=== PATIENT | female | born 1960 | race Caucasian/White ===

== ENCOUNTER 2018-06-18 09:35 | Emergency (ER) | payer BC ==
[2018-06-18 09:54] VITALS: BP 103/61
--- NOTE | 2018-06-18 10:20 | UC ---
Abdominal Pain Female HPI - HPI Summary HPI Summary: Patient presents to urgent care reporting 18 hours of urinary frequency and urine spasm and mild odor. No back pain. No nausea vomiting. No hematuria. Patient with a history of recurrent UTIs and states this feels similar. No vaginal discharge, itching, or odor. No concern for STI. Patient has not taken any analgesia. Patient's never had problems with resistance antibiotics. Patient's allergy denies. Patient without complaints. Patient's medications reviewed this visit - History of Current Complaint Chief Complaint: UCGU Stated Complaint: URINARY COMPLAINT Time Seen by Provider: 06/18/18 10:02 Hx Obtained From: Patient Pain Intensity: 0 Allergies/Adverse Reactions: Allergies Allergy/AdvReac Type Severity Reaction Status Date / Time No Known Allergies Allergy Verified 06/18/18 09:50 Home Medications: Home Medications Levothyroxine TAB* [Synthroid TAB*] 25 mcg PO DAILY 06/18/18 [History Confirmed 06/18/18] PMH/Surg Hx/FS Hx/Imm Hx Previously Healthy: Yes - Surgical History Surgical History: Yes Surgery Procedure, Year, and Place: 3 C SECTIONS. APPENDECTOMY - Family History Known Family History: Positive: Other - mother had frequent UTI's - Social History Occupation: Employed Full-time Lives: With Family Alcohol Use: Occasionally Substance Use Type: None Smoking Status (MU): Never Smoked Tobacco Review of Systems All Other Systems Reviewed And Are Negative: Yes Genitourinary: Positive: Dysuria, Frequency Physical Exam - Summary Physical Exam Summary: Vital Signs Reviewed: Yes A+Ox3, no distress Eyes: Conjunctiva Clear ENT: Hearing grossly normal neck: supple Respiratory: Positive: No respiratory distress, No accessory muscle use CTA throughout no w/r Cardiovascular: skin color reflect adequate perfusion RRR nl s1 s2 abd soft + BS no guarding, no rebound soft no CVA Musculoskeletal Exam: PERDOMO x 4 without difficulty Neurological: Positive: Alert, ambulatory without difficulty Psychological: Positive: Normal Response To Family Skin: Positive: no rash, no ecchymosis Triage Information Reviewed: Yes Vital Signs: Initial Vital Signs Temp 98.6 F 06/18/18 09:50 Pulse 58 06/18/18 09:50 Resp 15 06/18/18 09:50 BP 103/61 06/18/18 09:50 Pulse Ox 99 06/18/18 09:50 Abd Pain Female Course/Dx - Course Course Of Treatment: Patient presents with 18 hours of urinary frequency, urgency and spasm. Patient without any vaginal discharge. Patient's urinalysis consistent with UTI. We'll culture. We'll start on Macrobid. Also prescribe Pyridium. Hydrate. Motrin/Tylenol. Patient comfortable in agreement with plan. - Differential Dx/Diagnosis Provider Diagnoses: UTI Discharge - Sign-Out/Discharge Documenting (check all that apply): Patient Departure All imaging exams completed and their final reports reviewed: No Studies - Discharge Plan Condition: Stable Disposition: HOME Prescriptions: Nitrofurantoin Monohyd/M-Cryst [Macrobid 100 mg Capsule] 100 mg PO BID #14 cap Phenazopyridine TAB* [Pyridium 100 mg TAB*] 100 mg PO TID PRN #9 tab PRN Reason: burning with urination Patient Education Materials: Urinary Tract Infection in Women (ED) Referrals: Harpal Duckworth MD [Primary Care Provider] - Additional Instructions: - stay well hydrated - drink plenty of non-alcoholic, non caffinated beverages - your urine will be further tested - if you require any changes to your treatment, we will contact you - this usually take 2 days - Contact your primary doctor to arrange a follow-up appointment next week. Contact your doctor or return with questions or concerns - Take your antibiotics exactly as prescribed until gone - Take pyridium as prescribed for discomfort. This will make your urine blaze orange - this is normal - Okay to alternate ibuprofen (Advil, Motrin) and Tylenol every 3 hours for pain. Take with food - Call your doctor or return with questions or concerns - Billing Disposition and Condition Condition: STABLE Disposition: Home
== END 2018-06-18 10:19 | disposition home or self-care (01) ==
LOC: UCCORT 09:35
DX: N39.0 Urinary tract infection, site not specified (principal); B96.20 Unspecified Escherichia coli [E. coli] as the cause of diseases classified elsewhere
CPT/HCPCS: 81003; 87077; 87086; 87186; 99212; G0463

== ENCOUNTER 2019-05-18 12:26 | Emergency (ER) | payer BC ==
--- OUTSIDE RECORDS SUMMARY | 2019-05-18 13:56 | XMS REPORT | Continuity of Care Document ---
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 Medicine Problems Active Problems Provider Date Hypothyroidism Onset: 07/29/2012 Vitamin D deficiency Onset: 07/29/2012 Cellulitis Onset: 07/29/2012 Social History Type Date Description Comments Sex Unknown ETOH Use A glass of wine once or twice A month Tobacco Use Start: Unknown End: Patient is a former smoker Quit 2008 Unknown Recreational Drug Use Denies Drug Use Smoking Status Reviewed: 05/30/14 Patient is a former smoker Quit 2008 Allergies, Adverse Reactions, Alerts Active Allergies Reaction Severity Comments Date Bacitracin 07/31/2018 Neomycin 07/31/2018 Polymyxin B 07/31/2018 Medications Active Medications SIG Qnty Indications Ordering Provider Date Levothyroxine Sodium 1 by mouth 30tabs E03.9 Harpal 03/02/2019 112mcg every day MD [facility]cci Tablets History Medications Levothyroxine Sodium take 1 tablet 30tabs E03.9 Harpal Duckworth 2018 - by mouth once 03/02/2019 100mcg Tablets daily Immunizations CPT Code Status Date Vaccine Reaction Lot # [id number] Given 10/29/2018 Tdap - risk & benefits MF9EA/Tdap/Priv Tetanus/Diptheria/Acel discussed ate lular Pertussis 14145 Given 05/30/2014 Influenza Virus 3Yrs & Over 80622 Given 05/27/2013 Influenza Virus 3Yrs & Over 16105 Given 05/04/2012 Influenza Virus 3Yrs & Over 25541 Given 05/01/2011 Influenza Virus 3Yrs & Over 65998 Given 04/11/2010 Tdap - Tetanus/Diptheria/Acel lular Pertussis 19671 Given 04/11/2010 Influenza Virus 3Yrs & Over Vital Signs Date Vital Result Comment 04/01/2019 3:49pm Weight 120.00 lb BP Systolic Sitting 100 mmHg BP Diastolic Sitting 50 mmHg 10/29/2018 3:20pm Weight 113.00 lb BP Systolic Sitting 102 mmHg BP Diastolic Sitting 40 mmHg Results Description No Information Available Procedures Date Code Description Status 08/27/2018 [id number] Mammogram Completed 08/27/2017 [id number] Mammogram Completed 10/08/2013 [id number] Colonoscopy Completed Medical Devices Description No Information Available Encounters Description No Information Available Assessments Date Code Description Provider 04/01/2019 A09 Infectious gastroenteritis and colitis, YUMIKO Galvan unspecified 04/01/2019 K21.9 Gastro-esophageal reflux disease without YUMIKO Galvan esophagitis 10/29/2018 Z23 Encounter for immunization Nurse Schedule Loc 73 Plan of Treatment Future Appointment(s):07/16/2019 9:30 am - YUMIKO Galvan at [facility]11/2018 - RALEIGH Galvan Infectious gastroenteritis and colitis, [id number] Gastro-esophageal reflux disease without esophagitisNew Medication: - Functional Status Description No Information Available Mental Status Description No Information Available Referrals Description No Information Available
--- OUTSIDE RECORDS SUMMARY | 2019-05-18 13:56 | XMS REPORT | Continuity of Care Document ---
:1960 External Reference #:[id number] Author Name Radha Oglesby Description No Information Available Social History Type Date Description Comments Sex Unknown Allergies, Adverse Reactions, Alerts Description No Information Available Medications Description No Information Available Immunizations Description No Information Available Vital Signs Description No Information Available Results Test Date Facility Test Result H/L Range Note Laboratory test [facility] Act Partial 75.2 High 23.4-35.0 1, 2 finding [address] [place] [address] Time [phone] Laboratory test [facility] Act Partial > 150.0 Critical 23.4-35.0 3 finding [address] [place] [address] Time [phone] Laboratory test [facility] Act Partial 41.8 High 23.4-35.0 4 finding [address] [place] [place] [address] Time [phone] Laboratory test [facility] Act Partial 50.8 High 23.4-35.0 5 finding [address] [place] [address] Time [phone] CBC W/Automated [facility] White Blood 6.9 K/uL Normal 3.1-10.7 Diff [address] [place] [address] [phone] Red Blood Count 3.74 M/uL Low 3.90-5.40 Hemoglobin 11.8 gm/dL Normal 11.6-15.8 Hematocrit 36.0 % Normal 36.0-46.1 Mean Cell Volume 96.3 fl Normal 80.9-99.0 Mean Corpuscular HGB 31.6 pg Normal 25.9-32.7 Mean Corpuscular HGB Conc 32.8 g/dL Normal 30.8-34.3 Platelet Count 135 K/uL Low 155-360 Red Cell Distri Width SD 55.9 fl High 36-47 Red Cell Distri Width %CV 15.9 % High 11.7-14.4 Mean Platelet Volume 11.5 fl Normal 8.9-12.4 Neut% 42.6 % Normal 40.4-72.8 Lymph % 14.1 % Low 20.0-42.0 Kane % 7.8 % Normal 4.3-13.2 Eo% 32.9 % High 0.0-6.6 Bas% 1.7 % High 0.0-1.1 Immature Grans 0.9 % Normal 0.0-5.0 NRBC % 0.0 /100WBC < 10/ 100 WBC Neut# 2.96 K/uL Normal 1.8-7.0 Lymph # 0.98 K/uL Low 1.0-4.0 Kane # 0.54 K/uL Normal 0.3-0.9 Eos # 2.28 K/uL High 0.0-0.5 Baso # 0.12 K/uL High 0.0-0.1 Immature Grans Absolute 0.06 K/uL NRBC # 0.00 K/uL Laboratory test 04/08/2019 [facility] Act 87.6 High 23.4-35.[address] [place] [place] [address] Thrombo [phone] Time Comprehensive 04/08/2019 [facility] Glucose 90 mg/dL Normal 74-106 Metabolic Panel [address] [place] [address] [phone] BUN 7 mg/dL Normal 7-18 Creatinine 0.9 mg/dL Normal 0.6-1.3 Glom Filtration Rate, Estimate >60 mL/min >60 If >60 mL/min >60 6 BUN/Creat 7.7 ratio Sodium 141 mmol/L Normal 136-145 Potassium 3.4 mmol/L Low 3.5-5.1 Chloride 109 mmol/L High 98-107 Carbon Dioxide 26 mmol/L Normal 21-32 Anion Gap 6 mEq/L Low 8-16 Calcium 8.4 mg/dL Low 8.5-10.1 Total Protein 6.1 g/dL Low 6.4-8.2 Albumin 3.1 g/dL Low 3.4-5.0 Globulin 3.0 g/dL Normal 1.9-4.3 Alb/Glob 1.0 ratio Bilirubin,Total 0.3 mg/dL Normal 0.2-1.0 Sgot/Ast 11 U/L Low 15-37 7 SGPT/Alt 22 U/L Normal 12-78 Alkaline Phosphatase 58 U/L Normal 45-117 Laboratory 04/08/2019 [facility] Magnesium 1.9 mg/dL Normal 1.8-2.4 test finding [address] [place] [address] [phone] Laboratory 04/08/2019 [facility] Act Partial 94.6 High 23.4-35.0 8 test finding [address] [place] Time seconds [place] [address] [phone] Laboratory 04/07/2019 [facility] Act Partial 59.5 High 23.4-35.0 test finding [address] [place] [address] [phone] Differential-W 04/07/2019 [facility] Total Cells 100 #CELLS BC Confirm [address] [place] [address] [phone] Band% 6 % Normal 0-8 Neutrophils% 49 % Normal 33-73 Lymph% 12 % Low 20-42 Monocyte% 8 % Normal 0-10 Eosinophil% 23 % High 0-5 Basophil% 2 % Normal 0-2 Platelet Estimate SLIGHT DECREASE Anisocytosis 0-1+ Slide Review 04/07/2019 [facility] Slide Review DIFF ORDERED [address] [place] [address] [phone] CBC 04/07/2019 [facility] White Blood 8.1 K/uL Normal 3.1-10 W/Automated [address] Count .7 [place] [address] [phone] Red Blood Count 4.13 M/uL Normal 3.90-5.40 Hemoglobin 13.3 gm/dL Normal 11.6-15.8 Hematocrit 39.7 % Normal 36.0-46.1 Mean Cell Volume 96.1 fl Normal 80.9-99.0 Mean Corpuscular HGB 32.2 pg Normal 25.9-32.7 Mean Corpuscular HGB Conc 33.5 g/dL Normal 30.8-34.3 Platelet Count 138 K/uL Low 155-360 Red Cell Distri Width SD 56.0 fl High 36-47 Red Cell Distri Width %CV 15.9 % High 11.7-14.4 Mean Platelet Volume 11.4 fl Normal 8.9-12.4 Neut% 47.3 % Normal 40.4-72.8 Lymph % 12.9 % Low 20.0-42.0 Kane % 7.2 % Normal 4.3-13.2 Eo% 30.1 % High 0.0-6.6 Bas% 1.5 % High 0.0-1.1 Immature Grans 1.0 % Normal 0.0-5.0 NRBC % 0.0 /100WBC < 10/ 100 WBC Neut# 3.83 K/uL Normal 1.8-7.0 Lymph # 1.04 K/uL Normal 1.0-4.0 Kane # 0.58 K/uL Normal 0.3-0.9 Eos # 2.43 K/uL High 0.0-0.5 Baso # 0.12 K/uL High 0.0-0.1 Immature Grans Absolute 0.08 K/uL NRBC # 0.00 K/uL Laboratory test 04/07/2019 [facility] C-Reactive 14.7 mg/L High <3.0 [address] Protein,[place] [address] [phone] Act Partial Thrombo Time 49.9 seconds High 23.4-35.0 10 Comprehensive Metabolic 04/07/2019 [facility] Glucose 107 mg/dL High 74-[address] [place], [place] [address] [phone] BUN 7 mg/dL Normal 7-18 Creatinine 0.9 mg/dL Normal 0.6-1.3 Glom Filtration Rate, Estimate >60 mL/min >60 If >60 mL/min >60 11 BUN/Creat 7.7 ratio Sodium 139 mmol/L Normal 136-145 Potassium 3.9 mmol/L Normal 3.5-5.1 Chloride 107 mmol/L Normal 98-107 Carbon Dioxide 27 mmol/L Normal 21-32 Anion Gap 5 mEq/L Low 8-16 Calcium 8.2 mg/dL Low 8.5-10.1 Total Protein 6.5 g/dL Normal 6.4-8.2 Albumin 3.2 g/dL Low 3.4-5.0 Globulin 3.3 g/dL Normal 1.9-4.3 Alb/Glob 1.0 ratio Bilirubin,Total 0.4 mg/dL Normal 0.2-1.0 Sgot/Ast 7 U/L Low 15-37 12 SGPT/Alt 17 U/L Normal 12-78 Alkaline Phosphatase 60 U/L Normal 45-117 Laboratory 04/07/2019 [facility] Act Partial 48.3 High 23.4-35.0 13 test finding [address] [place] [place] [address] Time [phone] Laboratory 04/06/2019 [facility] Act Partial 42.9 High 23.4-35.0 14 test finding [address] [place] [address] Time [phone] CBC 04/06/2019 [facility] White Blood 9.5 K/uL Normal 3.1-10.[address] [place] [address] [phone] Red Blood Count 4.21 M/uL Normal 3.90-5.40 Hemoglobin 13.3 gm/dL Normal 11.6-15.8 Hematocrit 39.8 % Normal 36.0-46.1 Mean Cell Volume 94.5 fl Normal 80.9-99.0 Mean Corpuscular HGB 31.6 pg Normal 25.9-32.7 Mean Corpuscular HGB Conc 33.4 g/dL Normal 30.8-34.3 Platelet Count 142 K/uL Low 155-360 Red Cell Distri Width SD 54.4 fl High 36-47 Red Cell Distri Width %CV 15.8 % High 11.7-14.4 Mean Platelet Volume 11.5 fl Normal 8.9-12.4 NRBC % 0.0 /100WBC < 10/ 100 WBC Laboratory test 04/06/2019 [facility] Act Partial 95.3 High 23.4-35.[address] [place] [place] [address] Time [phone] CBC W/Automated 04/06/2019 [facility] White Blood 9.6 K/uL Normal 3.1-10.[address] [place] [address] [phone] Red Blood Count 4.09 M/uL Normal 3.90-5.40 Hemoglobin 13.0 gm/dL Normal 11.6-15.8 Hematocrit 39.1 % Normal 36.0-46.1 Mean Cell Volume 95.6 fl Normal 80.9-99.0 Mean Corpuscular HGB 31.8 pg Normal 25.9-32.7 Mean Corpuscular HGB Conc 33.2 g/dL Normal 30.8-34.3 Platelet Count 129 K/uL Low 155-360 Red Cell Distri Width SD 55.7 fl High 36-47 Red Cell Distri Width %CV 15.8 % High 11.7-14.4 Mean Platelet Volume 11.7 fl Normal 8.9-12.4 Neut% 42.3 % Normal 40.4-72.8 Lymph % 15.0 % Low 20.0-42.0 Kane % 7.0 % Normal 4.3-13.2 Eo% 33.2 % High 0.0-6.6 Bas% 1.5 % High 0.0-1.1 Immature Grans 1.0 % Normal 0.0-5.0 NRBC % 0.0 /100WBC < 10/ 100 WBC Neut# 4.08 K/uL Normal 1.8-7.0 Lymph # 1.45 K/uL Normal 1.0-4.0 Kane # 0.67 K/uL Normal 0.3-0.9 Eos # 3.20 K/uL High 0.0-0.5 Baso # 0.14 K/uL High 0.0-0.1 Immature Grans Absolute 0.10 K/uL NRBC # 0.00 K/uL Laboratory test 04/06/2019 [facility] Magnesium 1.9 mg/dL Normal 1.8-2.4 15 finding [address] [facility] [place] [address] [phone] C-Reactive Protein,Quant 17.3 mg/L High <3.0 16 Comprehensive 04/06/2019 [facility] Glucose 90 mg/dL Normal 74-106 Metabolic Panel [address] [place] [address] [phone] BUN 5 mg/dL Critical low 7-18 Creatinine 0.8 mg/dL Normal 0.6-1.3 Glom Filtration Rate, Estimate >60 mL/min >60 If >60 mL/min >60 17 BUN/Creat 6.2 ratio Sodium 140 mmol/L Normal 136-145 Potassium 3.8 mmol/L Normal 3.5-5.1 Chloride 107 mmol/L Normal 98-107 Carbon Dioxide 26 mmol/L Normal 21-32 Anion Gap 7 mEq/L Low 8-16 Calcium 8.0 mg/dL Low 8.5-10.1 Total Protein 6.3 g/dL Low 6.4-8.2 Albumin 3.2 g/dL Low 3.4-5.0 Globulin 3.1 g/dL Normal 1.9-4.3 Alb/Glob 1.0 ratio Bilirubin,Total 0.4 mg/dL Normal 0.2-1.0 Sgot/Ast 9 U/L Low 15-37 18 SGPT/Alt 16 U/L Normal 12-78 Alkaline Phosphatase 58 U/L Normal 45-117 Protime 04/06/2019 [facility] Protime 16.3 seconds High 12.0-14.4 [address] [place], [place] [address] [phone] Inr 1.3 High 0.9-1.1 19 Laboratory test 04/06/2019 [facility] Vitamin B12 793 pg/mL Normal 193-986 finding [address] [place], [place] [address] [phone] CK 11 U/L Low 26-192 Laboratory test 04/06/2019 [facility] Strongyloides Igg Negative Negative [address] AB [place], [place] [address] [phone] Fungal 04/06/2019 [facility] Aspergillus Negative Neg:<1:1 Antibodies, [address] Fumigatus Quant [place], [place] [address] [phone] Aspergillus Flavus Negative Neg:<1:1 Aspergillus Niger Negative Neg:<1:1 Blastomyces Abs, Qn, Did Negative Neg:<1:1 Histoplasma Abs,Qn,Did Negative Neg:<1:1 Laboratory 04/06/2019 [facility] Tryptase 7.5 ug/L 2.2-13.2 test finding [address] [place], [place] [address] [phone] HIV Screen 4TH 04/06/2019 [facility] HIV Screen Non Non 21 Gen Reflex [address] 4th [place] [address] Generation [phone] wRfx Ebv Acute 04/06/2019 [facility] Ebv AB 77.9 U/mL High 0.0-35.[address] Vca,[place] [address] [phone] Ebv Early Antigen AB, IgG <9.0 U/mL 0.0-8.9 23 Ebv AB Vca,Igg >600.0 U/mL High 0.0-17.9 24 Ebv Nuclear Antigen AB, Igg 22.0 U/mL High 0.0-17.9 25 Ebv Interpretation (SEE NOTE) 26 Laboratory 04/06/2019 [facility] Act Partial 48.9 High 23.4-35.0 test finding [address] Thrombo Time seconds [place], [place] [address] [phone] Laboratory 04/06/2019 [facility] Urine 2 % High 0-1 test finding [address] [place] [address] [phone] Drugs Of 04/06/2019 [facility] Amphetamines Negative Abuse-Urine [address] (Urine) Screen 7 [place], [place] [id number] [phone] Barbiturates (Urine) Negative Benzodiazepines (Urine) Negative Cannabinoids (Urine) Negative Cocaine Metabolite (Urine) Negative Methadone (Urine) Negative Opiates (Urine) POSITIVE Abnormal Urine Cutoffs * 27 Type And Screen 04/05/2019 [facility] Patient Blood Type O POS Normal [address] [place] [address] [phone] Antibody Screen Negative Normal Negative Laboratory test 04/05/2019 [facility] Magnesium 2.2 mg/dL Normal 1.8-2.[address] [place], [place] [address] [phone] Lipase 43 U/L Low 56-289 TSH Reflex FT4 and/or FT3 4.79 uIU/mL High 0.30-4.20 HCG,Serum (Qualitative) NEGATIVE (Negative) 28 C-Reactive Protein,Quant 12.0 mg/L High <3.0 Comprehensive 04/05/2019 [facility] Glucose 105 mg/dL Normal 74-106 Metabolic Panel [address] [place] [address] [phone] BUN 6 mg/dL Low 7-18 Creatinine 1.1 mg/dL Normal 0.6-1.3 Glom Filtration Rate, Estimate 55 mL/min >60 If >60 mL/min >60 29 BUN/Creat 5.4 ratio Sodium 136 mmol/L Normal 136-145 Potassium 4.3 mmol/L Normal 3.5-5.1 Chloride 104 mmol/L Normal 98-107 Carbon Dioxide 26 mmol/L Normal 21-32 Anion Gap 6 mEq/L Low 8-16 Calcium 9.2 mg/dL Normal 8.5-10.1 Total Protein 8.3 g/dL High 6.4-8.2 Albumin 3.9 g/dL Normal 3.4-5.0 Globulin 4.4 g/dL High 1.9-4.3 Alb/Glob 0.9 ratio Bilirubin,Total 0.6 mg/dL Normal 0.2-1.0 Sgot/Ast 7 U/L Low 15-37 30 SGPT/Alt 17 U/L Normal 12-78 Alkaline Phosphatase 82 U/L Normal 45-117 Aot Request 04/05/2019 [facility] Aot Request Test(s) added 31 [address] [place] [address] [phone] Tests to be added: CRP MAGNESIUM CCP Igg/Iga 04/05/2019 [facility] CCP Igg/Iga 6 units 0-19 32 Antibodies [address] [facility] [place] [address] [phone] Babesia Microti 04/05/2019 [facility] Babesia <1:10 Neg:<1:10 33 Igg/M Abs,Ifa [address] [facility] microti,[place] [address] [phone] Babesia microti,IgM <1:10 Neg:<1:10 Hepatitis 04/05/2019 [facility] Hepatitis A Negative Negative Evaluation [address] [facility] [place] [address] [phone] HBsAg Screen [Ref Lab] Negative Negative Hepatitis B Core IgM Negative Negative HCV Signal/Cutoff ratio < 0.1 s/corat 0.0-0.9 34 Laboratory test 04/05/2019 [facility] Ferritin 55 ng/mL Normal 8-252 finding 134 [facility] [place] [address] [phone] Kane Screen (Heterophile) NEGATIVE Negative 35 Rheumatoid Factor Screen < 10.0 IU/mL Normal 0.0-15.0 Erythropoietin (Epo), Serum 5.9 mIU/mL 2.6-18.5 36 Blood Culture 04/05/2019 [facility] Blood Culture NO GROWTH: FINAL [address] Aerobic <SEE NOTE> [place] [address] [phone] Blood Culture Anaerobic NO GROWTH: FINAL <SEE NOTE> 38 Laboratory 04/05/2019 [facility] Lyme Total < 0.91 ISR 0.00-0.90 39 test finding [address] AB/[place] [address] WB [phone] Bartonella 04/05/2019 [facility] Bartonella Negative Neg:<1:320 Antibody Panel [address] [place] [address] [phone] Bartonella Henselae IgM Negative titer Neg:<1:100 Bartonella Feng IgG Negative titer Neg:<1:320 Bartonella Feng IgM Negative titer Neg:<1:100 40 Blood Culture 04/05/2019 [facility] Blood Culture NO GROWTH: FINAL [address] Aerobic <SEE NOTE> [place] [address] [phone] Blood Culture Anaerobic NO GROWTH: FINAL <SEE NOTE> 42 CMV By 04/05/2019 [facility] Ctyomegalovirus, Negative Negative 43 PCR, Dna [address] Quant. PCR IU/[place] [address] [phone] log [address] (SEE NOTE) 44 Ebv PCR 04/05/2019 [facility] Ebv Dna Negative Negative [address] Quantitative,PCR [place], [place] [address] [phone] Log10 Ebv Dna Qn (SEE NOTE) 46 Hemoglobin/Hematocrit 04/05/2019 [facility] Hemoglobin 14.0 Normal 11.6-15.[address] gm/dL [place] [address] [phone] Hematocrit 41.8 % 36.0-46.1 Blood Culture 04/05/2019 [facility] Blood Culture NO GROWTH: FINAL [address] Aerobic <SEE NOTE> [place] [address] [phone] Blood Culture Anaerobic NO GROWTH: FINAL <SEE NOTE> 48 1 LLQ PAIN 2 Is patient on heparin protocol? Y 3 CALLED PTT TO MURALI DavideSiddhartha AT [phone] 04/09/19 by LAB.ELR Is patient on heparin protocol? Y 4 Is patient on heparin protocol? Y Is patient on anticoagulants? Heparin 5 Is patient on heparin protocol? Y 6 Note: Persistent reduction for 3 months or more in an eGFR <60 mL/min/1.73 m2 defines CKD. Patients with eGFR values >/=60 mL/min/1.73 m2 may also have CKD if evidence of persistent proteinuria is present. The original MDRD equation for estimated GFR is not valid for patients less than 18 years of age. Additional information may be found at www.kdoqi.org. 7 Values below the stated reference ranges of AST and ALT can be seen in normal populations. Clinical correlation is suggested. 8 Is patient on heparin protocol? Y Is patient on anticoagulants? Heparin 9 OK To Combine Draws Per RN 10 Is patient on heparin protocol? Y Is patient on anticoagulants? Heparin OK To Combine Draws Per RN 11 Note: Persistent reduction for 3 months or more in an eGFR <60 mL/min/1.73 m2 defines CKD. Patients with eGFR values >/=60 mL/min/1.73 m2 may also have CKD if evidence of persistent proteinuria is present. The original MDRD equation for estimated GFR is not valid for patients less than 18 years of age. Additional information may be found at www.kdoqi.org. 12 Values below the stated reference ranges of AST and ALT can be seen in normal populations. Clinical correlation is suggested. 13 Is patient on heparin protocol? Y Is patient on anticoagulants? Heparin 14 Is patient on heparin protocol? Y Is patient on anticoagulants? Heparin [address] ASHLEY JONES [address] ASHLEY JONES 17 Note: Persistent reduction for 3 months or more in an eGFR <60 mL/min/1.73 m2 defines CKD. Patients with eGFR values >/=60 mL/min/1.73 m2 may also have CKD if evidence of persistent proteinuria is present. The original MDRD equation for estimated GFR is not valid for patients less than 18 years of age. Additional information may be found at www.kdoqi.org. 18 Values below the stated reference ranges of AST and ALT can be seen in normal populations. Clinical correlation is suggested. 19 THERAPEUTIC INR RANGE: 2.0 - 3.0 DVT, Pulmonary embolus, prophylaxis against venous thrombosis or systemic embolization in high risk patients. 2.5 - 3.5 Mechanical heart valves 20 Performed at: [address] [id number] Network Project Manager: Keturah Valencia MD, Phone: [phone] 21 Performed at: [address] [id number] Network Project Manager: Mita Wang MD, Phone: [phone] 22 Negative <36.0 Equivocal 36.0 - 43.9 Positive >43.9 23 Negative < 9.0 Equivocal 9.0 - 10.9 Positive >10.9 24 Negative <18.0 Equivocal 18.0 - 21.9 Positive >21.9 25 Negative <18.0 Equivocal 18.0 - 21.9 Positive >21.9 26 EBV Interpretation Chart Interpretation EBV-IgM EA(D)-IgG VCA-IgG EBNA-IgG EBV Seronegative - - - - Early Phase + - - - Acute Primary + +or- + - Infection Convalescence/Past - +or- + + Infection Reactivated +or- +or- + + Infection + Antibody Present - Antibody Absent Performed at: [address] [id number] Network Project Manager: Mita Wang MD, Phone: [phone] 27 URINE SPECIMENS ARE SCREENED AT THE LISTED CUTOFFS DRUG CLASS INITIAL TEST LEVEL Amphetamines 1000 ng/mL Barbiturates 200 ng/mL Benzodiazepines 200 ng/mL Cannabinoids 50 ng/mL Cocaine Metabolite 300 ng/mL Methadone 300 ng/mL Opiates 300 ng/mL Any PRESUMPTIVE POSITIVE findings are UNCONFIRMED. Confirmatory testing is suggested if findings are unexpected. Please contact laboratory if confirmatory testing is desired. SPECIMENS ARE HELD FOR 72 HOURS. 28 Method: [employer] QuickVue One-Step Immunoassay 29 Note: Persistent reduction for 3 months or more in an eGFR <60 mL/min/1.73 m2 defines CKD. Patients with eGFR values >/=60 mL/min/1.73 m2 may also have CKD if evidence of persistent proteinuria is present. The original MDRD equation for estimated GFR is not valid for patients less than 18 years of age. Additional information may be found at www.kdoqi.org. 30 Values below the stated reference ranges of AST and ALT can be seen in normal populations. Clinical correlation is suggested. 31 Tests: CRP MAGNESIUM Instructions: 32 Negative <20 Weak positive 20 - 39 Moderate positive 40 - 59 Strong positive >59 Performed at: [address] [id number] Network Project Manager: Keturah Valencia MD, Phone: [phone] 33 This test was developed and its performance characteristics determined by [employer]. It has not been cleared or approved by the U.S. Food and Drug Administration. The FDA has determined that such clearance or approval is not necessary. This test is used for clinical purposes. It should not be regarded as investigational or research. Performed at: [address] [id number] Network Project Manager: Keturah Valencia MD, Phone: [phone] 34 INFCE Result Units: s/co ratio Negative: < 0.8 Indeterminate: 0.8 - 0.9 Positive: > 0.9 The CDC recommends that a positive HCV antibody result be followed up with a HCV Nucleic Acid Amplification test (144142). Performed at: [address] [id number] Network Project Manager: Mita Wang MD, Phone: [phone] 35 METHOD: Kane II Rapid Immunochromatographic assay [facility] 36 [employer] DxI 800 Immunoassay System Values obtained with different assay methods or kits cannot be used interchangeably. Results cannot be interpreted as absolute evidence of the presence or absence of malignant disease. Performed at: [address] [id number] Network Project Manager: Mita Wang MD, Phone: [phone] 37 NO GROWTH: FINAL REPORT 38 NO GROWTH: FINAL REPORT 39 Negative <0.91 Equivocal 0.91 - 1.09 Positive >1.09 Performed at: [address] [id number] Network Project Manager: Keturah Valencia MD, Phone: [phone] Performed at: [address] [id number] Network Project Manager: Mita Wang MD, Phone: [phone] 40 Note: Bartonella henselae is now regarded as the etiologic agent of Cat Scratch Disease, bacillary angiomatosis, endocarditis and fever with bacteremia. Bartonella feng also causes bacillary angiomatosis particularly among immunocompromised patients, and trench fever. This test was developed and its performance characteristics determined by [facility]. It has not been cleared or approved by the Food and Drug Administration. The FDA has determined that such clearance or approval is not necessary. 41 NO GROWTH: FINAL REPORT 42 NO GROWTH: FINAL REPORT 43 No CMV DNA detected. The quantitative range of this assay is 200 to 1 million IU/mL. This test was developed and its performance characteristics determined by [facility]. It has not been cleared or approved by the Food and Drug Administration. The FDA has determined that such clearance or approval is not necessary. 44 Unable to calculate result since non-numeric result obtained for component test. Performed at: [address] [id number] Network Project Manager: Keturah Valencia MD, Phone: [phone] 45 INFCE Result Units: copies/mL No EBV DNA detected. The quantitative range of this assay is 100 to 1 million copies/mL. This test was developed and its performance characteristics determined by [facility]. It has not been cleared or approved by the Food and Drug Administration. 46 Unable to calculate result since non-numeric result obtained for component test. 47 NO GROWTH: FINAL REPORT 48 NO GROWTH: FINAL REPORT Procedures Description No Information Available Medical Devices Description No Information Available Encounters Description No Information Available Assessments Date Code Description Provider 04/09/2019 R10.32 Left lower quadrant pain Rachele Arrington M.D. 04/09/2019 R16.2 Hepatomegaly with splenomegaly, not Rachele Arrington M.D. elsewhere classified 04/09/2019 R19.7 Diarrhea, unspecified Rachele Arrington M.D. 04/09/2019 R23.3 Spontaneous ecchymoses Rachele Arrington M.D. 04/08/2019 R16.2 Hepatomegaly with splenomegaly, not Blanca Moise M.D. elsewhere classified 04/08/2019 R10.32 Left lower quadrant pain Rachele Arrington M.D. 04/08/2019 R19.7 Diarrhea, unspecified Blanca Moise M.D. 04/08/2019 R16.2 Hepatomegaly with splenomegaly, not Rachele Arrington M.D. elsewhere classified 04/08/2019 R10.32 Left lower quadrant pain Blanca Moise M.D. 04/08/2019 R19.7 Diarrhea, unspecified Rachele Arrington M.D. 04/08/2019 D75.1 Secondary polycythemia Blanca Moise M.D. 04/08/2019 R23.3 Spontaneous ecchymoses Rachele Arrington M.D. 04/07/2019 R93.5 Abnormal findings on diagnostic imaging of Ortiz Collins MD,FACS other abdominal regions, including retroperitoneum 04/07/2019 R16.2 Hepatomegaly with splenomegaly, not Blanca Moise M.D. elsewhere classified 04/07/2019 R19.7 Diarrhea, unspecified Blanca Moise M.D. 04/07/2019 R10.32 Left lower quadrant pain Rachele Arrington M.D. 04/07/2019 R10.32 Left lower quadrant pain Blanca Moise M.D. 04/07/2019 R16.2 Hepatomegaly with splenomegaly, not Ortiz Collins MD,FACS elsewhere classified 04/07/2019 D75.1 Secondary polycythemia Blanca Moise M.D. 04/07/2019 R16.2 Hepatomegaly with splenomegaly, not Rachele Arrington M.D. elsewhere classified 04/07/2019 R19.7 Diarrhea, unspecified Ortiz Collins MD,FACS 04/07/2019 R19.7 Diarrhea, unspecified Rachele Arrington M.D. 04/07/2019 R10.9 Unspecified abdominal pain Ortiz Collins MD,FACS 04/07/2019 R23.3 Spontaneous ecchymoses Rachele Arrington M.D. 04/06/2019 R10.32 Left lower quadrant pain Rachele Arrington M.D. 04/06/2019 R93.5 Abnormal findings on diagnostic imaging of Ortiz Collins MD,FACS other abdominal regions, including retroperitoneum 04/06/2019 R16.2 Hepatomegaly with splenomegaly, not Blanca Moise M.D. elsewhere classified 04/06/2019 R19.7 Diarrhea, unspecified Blanca Moise M.D. 04/06/2019 R16.2 Hepatomegaly with splenomegaly, not Ortiz Collins MD,FACS elsewhere classified 04/06/2019 R16.2 Hepatomegaly with splenomegaly, not Rachele Arrington M.D. elsewhere classified 04/06/2019 R10.32 Left lower quadrant pain Blanca Moise M.D. 04/06/2019 R19.7 Diarrhea, unspecified Ortiz Collins MD,FACS 04/06/2019 R19.7 Diarrhea, unspecified Rachele Arrington M.D. 04/06/2019 D75.1 Secondary polycythemia Blanca Moise M.D. 04/06/2019 R10.9 Unspecified abdominal pain Ortiz Collins MD,FACS 04/06/2019 R23.3 Spontaneous ecchymoses Rachele Arrington M.D. 04/05/2019 R19.7 Diarrhea, unspecified Wilmer Cardenas MD 04/05/2019 R93.5 Abnormal findings on diagnostic imaging of Ortiz Collins MD,MERCY other abdominal regions, including retroperitoneum 04/05/2019 R10.32 Left lower quadrant pain Rachele Arrington M.D. 04/05/2019 R10.32 Left lower quadrant pain Wilmer Cardenas MD 04/05/2019 R16.2 Hepatomegaly with splenomegaly, not Ortiz Collins MD,FACS elsewhere classified 04/05/2019 R16.2 Hepatomegaly with splenomegaly, not Rachele Arrington M.D. 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 Plan of Treatment No Information Available Functional Status Description No Information Available Mental Status Description No Information Available Referrals Description No Information Available
[2019-05-18 14:01] VITALS: BP 90/47
--- NOTE | 2019-05-18 14:07 | UC ---
Complaint Female HPI - HPI Summary HPI Summary: Patient is a 58yo female presenting with urinary burning and frequency since this morning. Patient states she "just knows she has a UTI" and has had them in the past. Notes mild pelvic pressure. Notes blood in urine when she arrived here. Denies abdominal pain. Denies n/v/d. Denies fever and chills. Denies flank pain. Patient notes currently taking amoxicillin for tooth infection and states two days left of prescription. - History Of Current Complaint Chief Complaint: UCGU Stated Complaint: URINARY Hx Obtained From: Patient Onset/Duration: Gradual Onset Pain Intensity: 0 - Allergies/Home Medications Allergies/Adverse Reactions: Allergies Allergy/AdvReac Type Severity Reaction Status Date / Time No Known Allergies Allergy Verified 05/18/19 14:01 Home Medications: Home Medications Amoxicillin 500 mg PO TID 05/18/19 [History Confirmed 05/18/19] PMH/Surg Hx/FS Hx/Imm Hx Previously Healthy: Yes - Surgical History Surgical History: Yes Surgery Procedure, Year, and Place: 3 C SECTIONS. APPENDECTOMY - Family History Known Family History: Positive: Other - mother had frequent UTI's - Social History Alcohol Use: Occasionally Substance Use Type: None Smoking Status (MU): Never Smoked Tobacco Review of Systems All Other Systems Reviewed And Are Negative: Yes Constitutional: Positive: Negative. Negative: Fever, Chills Respiratory: Positive: Negative. Negative: Shortness Of Breath, Cough Cardiovascular: Positive: Negative. Negative: Chest Pain Gastrointestinal: Positive: Negative. Negative: Abdominal Pain, Vomiting, Diarrhea, Nausea Genitourinary: Positive: Dysuria, Hematuria, Frequency, Vaginal/Penile Burning. Negative: Urgency, Vaginal/Penile Itching, Vaginal/Penile Discharge, Vaginal/ Penile Pain, Vaginal/Penile Tenderness, Abnormal Bleeding Musculoskeletal: Positive: Negative Neurological: Positive: Negative Physical Exam Triage Information Reviewed: Yes Appearance: Well-Appearing, No Pain Distress, Well-Nourished Vital Signs: Initial Vital Signs Temp 97.6 F 05/18/19 13:58 Pulse 73 05/18/19 13:58 Resp 16 05/18/19 13:58 BP 90/47 05/18/19 13:58 Pulse Ox 98 05/18/19 13:58 Lab Results 05/18/19 Range/Units 14:07 POC Urine Color [place] POC Urine Clarity Cloudy POC Urine pH 7.5 (5-9) POC Ur Specif [place] 1.020 (1.010-1.030) POC Urine Protein 2+ A (Negative) POC Ur Glucose (UA) Negative (Negative) POC Urine Ketones Negative (Negative) POC Urine Blood 3+ A (Negative) POC Urine Nitrite Negative (Negative) POC Urine Bilirubin Negative (Negative) POC Urine Urobilinogen 0.2 (Negative) POC U Leukocyte Esteras 3+ A (Negative) Vital Signs Reviewed: Yes Eyes: Positive: Conjunctiva Clear ENT: Positive: Hearing grossly normal Neck: Positive: Supple Respiratory Exam: Normal Respiratory: Positive: Lungs clear, No respiratory distress Cardiovascular Exam: Normal Cardiovascular: Positive: RRR. Negative: Tachycardia Abdominal Exam: Normal Abdomen Description: Positive: Nontender. Negative: CVA Tenderness (R), CVA Tenderness (L) Neurological: Positive: Alert Psychological: Positive: Age Appropriate Behavior Complaint Female Dx - Course Course Of Treatment: Pt VS normal and no s/s of pyelo. Educated patient on UTI s/s vs pyelonephritis s/s. I treated with Keflex for UTI. Informed her she may use Azo for symptomatic relief. Also told her to finish her course of amoxicillin for her dental infection and to take probiotics or eat sw[place] yogurt while taking keflex. Instructed patient to return if symptoms do not resolve within 2 days or go to ED if they worsen. Patient voiced understanding and agreed to the treatment plan. - Differential Dx/Diagnosis Provider Diagnosis: UTI (urinary tract infection), uncomplicated Discharge ED - Sign-Out/Discharge Documenting (check all that apply): Patient Departure All imaging exams completed and their final reports reviewed: No Studies - Discharge Plan Condition: Stable Disposition: HOME Prescriptions: Cephalexin CAP* [Keflex CAP*] 500 mg PO BID #13 cap Patient Education Materials: Urinary Tract Infection in Women (ED) Referrals: Harpal Duckworth MD [Primary Care Provider] - If Needed Additional Instructions: Take Keflex as prescribed for treatment of your UTI. You received your first dose today at 2:30pm You may also take AZO otc for symptomatic relief. This may turn your urine orange. This is normal. Return or follow up with your PCP if your symptoms do not resolve with 2 days. To the emergency room if he experienced fever, nausea, vomiting, chills, or back pain. - Billing Disposition and Condition Condition: STABLE Disposition: Home
[2019-05-18] MEDS ORDERED: Cephalexin CAP* 500 MG PO ONE (14:26)
== END 2019-05-18 14:39 | disposition home or self-care (01) ==
LOC: UCCORT 12:26
DX: N39.0 Urinary tract infection, site not specified (principal); R31.9 Hematuria, unspecified; K04.7 Periapical abscess without sinus
CPT/HCPCS: 81003; 87077; 87086; 87186; 99212; A9270-GY; G0463

== ENCOUNTER 2019-07-10 18:28 | Emergency (ER) | payer BC ==
--- NOTE | 2019-07-10 18:33 | UC ---
Complaint Female HPI - HPI Summary HPI Summary: 59 yo female presents with UTI symptoms. She tells me that today she developed bladder pressure and urinary frequency. She had a UTI about 2 months that resolved with keflex per pt. She has had UTIs in the past, but never back to back like this. She denies fever, chills, flank pain, n/v, hematuria, vaginal bleeding or discharge - History Of Current Complaint Stated Complaint: URINARY COMPLAINT Time Seen by Provider: 07/10/19 18:33 Hx Obtained From: Patient Onset/Duration: Sudden Onset Timing: Constant Severity Initially: Mild Severity Currently: Moderate Pain Intensity: 5 Pain Scale Used: 0-10 Numeric - Allergies/Home Medications Allergies/Adverse Reactions: Allergies Allergy/AdvReac Type Severity Reaction Status Date / Time No Known Allergies Allergy Verified 07/10/19 18:46 PMH/Surg Hx/FS Hx/Imm Hx - Additional Past Medical History Additional PMH: Myelofibrosis Endocrine History: Hypothyroidism - Surgical History Surgical History: Yes Surgery Procedure, Year, and Place: 3 C SECTIONS. APPENDECTOMY - Family History Known Family History: Positive: Other - mother had frequent UTI's - Social History Occupation: Employed Full-time Lives: With Family Alcohol Use: Occasionally Substance Use Type: None Smoking Status (MU): Never Smoked Tobacco Review of Systems All Other Systems Reviewed And Are Negative: No Constitutional: Positive: Negative Skin: Positive: Negative Respiratory: Positive: Negative Cardiovascular: Positive: Negative Genitourinary: Positive: Dysuria Neurological: Positive: Negative Psychological: Positive: Negative Physical Exam - Summary Physical Exam Summary: GENERAL: NAD. WDWN. No pain distress. SKIN: No rashes, sores, lesions, or open wounds. NECK: Supple. Nontender. No lymphadenopathy. CHEST: CTAB. No r/r/w. No accessory muscle use. Breathing comfortably and in no distress. CV: RRR. Pulses intact. Cap refill <2seconds ABDOMEN: Soft. NTTP. No distention or guarding. No organomegaly. No CVA tenderness. Bowel sounds present NEURO: Alert. PSYCH: Age appropriate behavior. Triage Information Reviewed: Yes Vital Signs: Vital Signs (72 hours) 07/10/19 18:40 Temperature 98.7 F Pulse Rate 59 Respiratory 16 Rate Blood Pressure 90/59 (mmHg) O2 Sat by Pulse 98 Oximetry Laboratory Tests 07/10/19 18:54 POC Urine Color Other POC Urine Clarity Slightly cloudy POC Urine pH 7.5 POC Ur Specif [place] 1.020 POC Urine Protein 2+ A POC Ur Glucose (UA) Negative POC Urine Ketones Trace POC Urine Blood 3+ A POC Urine Nitrite Negative POC Urine Bilirubin 1+ A POC Urine Urobilinogen 1.0 POC U Leukocyte Esteras 3+ A Vital Signs Reviewed: Yes Complaint Female Dx - Course Course Of Treatment: BP low today. Pt states BP usually runs this. Looking at past records - BP today is similar to previous visits. UA positive - will treat with macrobid and send urine for culture. - Differential Dx/Diagnosis Provider Diagnosis: UTI (urinary tract infection) Discharge ED - Sign-Out/Discharge Documenting (check all that apply): Patient Departure All imaging exams completed and their final reports reviewed: No Studies - Discharge Plan Condition: Stable Disposition: HOME Prescriptions: Nitrofurantoin Monohyd/M-Cryst [Macrobid 100 mg Capsule] 100 mg PO BID #10 cap Patient Education Materials: Urinary Tract Infection in Women (ED) Referrals: Harpal Duckworth MD [Primary Care Provider] - Additional Instructions: If you develop a fever, shortness of breath, chest pain, new or worsening symptoms - please call your PCP or go to the ED immediately. - Billing Disposition and Condition Condition: STABLE Disposition: Home
[2019-07-10 18:46] VITALS: BP 90/59
[2019-07-10] MEDS ORDERED: Nitrofurantoin Macrocrystals* 50 MG CAP PO ONE (19:04)
== END 2019-07-10 19:23 | disposition home or self-care (01) ==
LOC: UCCORT 18:28
DX: N39.0 Urinary tract infection, site not specified (principal)
CPT/HCPCS: 81003; 87077; 87086; 87186; 99212; A9270-GY; G0463

== ENCOUNTER 2019-09-20 19:34 | Emergency (ER) | payer BC ==
[2019-09-20 20:56] VITALS: BP 97/57
--- NOTE | 2019-09-20 20:57 | UC ---
Respiratory Complaint HPI - HPI Summary HPI Summary: Pt presents with 4 days fever, sore throat,c ough states fatigues. no myalgia. pt states history of bronchitis and concerned same. Pt has been using Albuterol MDi with short term improvement - no spacer. no rash. no abd pain. no n/v/d No kenyon, vision changes no sick contact medications as entered in EMR by cardiovascular specialist reviewed this visit - History of Current Complaint Chief Complaint: UCGeneralIllness Stated Complaint: SORE THROAT/FEVER/COUGH Time Seen by Provider: 09/20/19 20:56 Hx Obtained From: Patient Hx Last Menstrual Period: N/A Onset/Duration: Gradual Onset Pain Intensity: 8 - Allergies/Home Medications Allergies/Adverse Reactions: Allergies Allergy/AdvReac Type Severity Reaction Status Date / Time No Known Allergies Allergy Verified 09/20/19 20:56 Home Medications: Home Medications Levothyroxine TAB* [Synthroid TAB*] 50 mcg PO DAILY 06/18/18 [History Confirmed 09/20/19] PMH/Surg Hx/FS Hx/Imm Hx Previously Healthy: Yes - Surgical History Surgical History: Yes Surgery Procedure, Year, and Place: 3 C SECTIONS. APPENDECTOMY - Family History Known Family History: Positive: Other - mother had frequent UTI's - Social History Occupation: Employed Full-time Lives: With Family Alcohol Use: Occasionally Substance Use Type: None Smoking Status (MU): Never Smoked Tobacco Review of Systems All Other Systems Reviewed And Are Negative: Yes Constitutional: Positive: Fever, Fatigue ENT: Positive: Sore Throat, Sinus Congestion Respiratory: Positive: Cough Cardiovascular: Positive: Negative Gastrointestinal: Positive: Negative Physical Exam - Summary Physical Exam Summary: Vital Signs Reviewed: Yes A+Ox3, no distress, tired appearing, coarse cough Eyes: Conjunctiva Clear, SHIRA. 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 Skin: Positive: no rash, no ecchymosis Triage Information Reviewed: Yes Vital Signs: Initial Vital Signs Temp 98.3 F 09/20/19 20:50 Pulse 61 09/20/19 20:50 Resp 16 09/20/19 20:50 BP 97/57 09/20/19 20:50 Pulse Ox 99 09/20/19 20:50 Re-Evaluation - Re-Evaluation First Eval Change: Improved - improved following neb wheezeing improved -feels better Rx prednisone aerochamber abx return precautions secretion precaution humidified air pt comfortable and in agreement with plan Respiratory Course/Dx - Course Course Of Treatment: Pt presents wtih cough, congestant, fever, cough progressive x 4 days pt using albuterol with improvement ital reviewed exam c/w rhinosinusitis lung with wheeze, cough pt declined influenza will give duoneb reassess - Differential Dx/Diagnosis Provider Diagnosis: Rhinosinusitis, Acute bronchitis Discharge ED - Sign-Out/Discharge Documenting (check all that apply): Patient Departure All imaging exams completed and their final reports reviewed: No Studies - Discharge Plan Condition: Stable Disposition: HOME Patient Education Materials: Upper Respiratory Infection (ED) Referrals: Harpal Duckworth MD [Primary Care Provider] - Additional Instructions: - Stay well hydrated. Drink plenty of non-alcoholic, non-caffinated beverages. - Alternate ibuprofen (Advil, Motrin) 600mg and Tylenol every 3 hours for pain or fever. Take with food. Do NOT take for more than 4-5 days. - These infections are spread by secretions - do NOT share eating or drinking utensils - clean items you share with other people such as cell phones, computer mouse, TV remote, computer tablets,etc. Once you start to feel better, change your toothbrush and your pillowcase. - humidify the air in the room where you sleep - boil water, run a hot steam shower, vaporizer, cups of water by heat register - okay to take over the counter decongestant and cough medication - get plenty of restful sleep -use nasal spray as prescribed - contact your doctor or return with questions or concerns - Billing Disposition and Condition Condition: STABLE Disposition: Home
[2019-09-20 21:23] LABS: Influenza A Molecular Negative (Negative); Influenza B Molecular Negative (Negative)
== END 2019-09-20 21:33 | disposition home or self-care (01) ==
LOC: UCCORT 19:34
DX: J20.9 Acute bronchitis, unspecified (principal); J32.9 Chronic sinusitis, unspecified; J02.9 Acute pharyngitis, unspecified
CPT/HCPCS: 87651; 99211; G0463